=== PATIENT | female | born 2000 | race Two or more races ===

== ENCOUNTER 2024-11-03 12:06 | Inpatient (IN) | payer OTHER ==
[~2024-11-03] VITALS: Ht 157.5 cm; Wt 43.5 kg
[2024-11-03] MEDS ORDERED: ONDANSETRON HCL 2 MG/ML VIAL IV ONE (13:45)
[2024-11-03] MEDS ORDERED: 0.9 % SODIUM CHLORIDE 1,000 ML IV ONE (13:45)
[2024-11-03] MEDS ORDERED: FAMOtidine 10 MG/ML (4ML VIAL) IV ONE (13:45)
[2024-11-03] MEDS ORDERED: ONDANSETRON HCL 2 MG/ML VIAL ONE (14:08)
[2024-11-03] MEDS ORDERED: FAMOTIDINE/PF 20 MG/2 ML VIAL ONE (14:08)
[2024-11-03 15:18] LABS: ALT/SGPT 21 U/L (12-78); AST/SGOT 9 U/L (15-37); BILIRUBIN TOTAL 0.79 mg/dL (0.3-1.2); BUN CREA RATIO 13 (7.0-25.0); CREATININE SERUM 0.80 mg/dL (0.55-1.02); GFR 88.89; GLOBULINA 5.5 G/DL (2.4-3.5); GLUCOSE FASTING 104 mg/dL (65-100); OSMOLALITY SERUM 273 MOSM/KG (275-295)
[2024-11-03 15:20] LABS: BASO % 0.2 % (0.1-1.2); EOS # 0.00 (0.04-0.54); EOS % 0.0 % (0.7-7.0); HCG QUANTITATIVE < 1 mUI/mL (1-3); LYMPH # 0.89 (1.18-3.74); LYMPH % 3.7 % (19.3-53.1); MEAN PLATELET VOLUME 11.00 fl (9.4-12.4); MONO # 1.04 (0.24-0.82); MONO % 4.3 % (4.7-12.5); NEUT # 21.97 (1.56-6.13); NEUT % 91.2 % (34.0-71.1); RED CELL DISTRIBUTION WIDTH 15.0 % (11.6-14.4)
[2024-11-03] MEDS ORDERED: CEFTRIAXONE SODIUM 1,000 MG VIAL ONE ×2 (15:33→15:38)
[2024-11-03 15:39] LABS: COVID-19 AG NEGATIVE (NEGATIVE)
[2024-11-03] MEDS ORDERED: CEFTRIAXONE SODIUM 1,000 MG VIAL IV ONE (15:45)
[2024-11-03 17:54] LABS: URINE APPEARANCE Clear; URINE BILIRRUBIN Negative (NEGATIVE); URINE BLOOD Moderate; URINE COLOR Yellow; URINE GLUCOSE Negative (NEGATIVE); URINE LEUKOCYTE Small; URINE NITRATE Positive; URINE UROBILINOGEN 1.0 E.U./dl
[2024-11-03 17:58] LABS: URINE BACTERIA 1355.9 uL (0.0-1933); URINE EPITHELIAL CELLS 9.6 uL (0.0-38.8); URINE RBC 101.3 uL (0.0-20.8); URINE WBC 207.9 uL (0.0-23.2)
[2024-11-03 18:04] LABS: URINE CAST 0.29 uL (0.0-1.40); URINE KETONE 80 (NEGATIVE); URINE PROTEIN 100 (NEGATIVE)
[2024-11-03] MEDS ORDERED: CEFTRIAXONE SODIUM 2,000 MG in 0.9 % SODIUM CHLORIDE 100 ML IV SCH (21:52)
[2024-11-03] MEDS ORDERED: FAMOTIDINE/PF 20 MG in 0.9 % SODIUM CHLORIDE 8 ML IV PUSH SCH (21:52)
[2024-11-03] MEDS ORDERED: 0.9 % SODIUM CHLORIDE 1,000 ML IV SCH (22:00)
[2024-11-03] MEDS ORDERED: ONDANSETRON HCL 4 MG in 0.9 % SODIUM CHLORIDE 50 ML IV PRN (22:00)
[2024-11-03] MEDS ORDERED: ACETAMINOPHEN 500 MG GEL..CAP PO PRN (22:00)
[2024-11-03] MEDS ORDERED: KETOROLAC TROMETHAMINE 15 MG VIAL IU ONE (22:00)
[2024-11-04 03:34] VITALS: BP 110/70; O2SAT 99
[2024-11-04 04:13] LABS: INR 1.15
[2024-11-04 06:06] VITALS: BP 108/67; O2SAT 98
[2024-11-04 08:35] VITALS: BP 96/62
[2024-11-04 16:44] VITALS: BP 112/71
[2024-11-04] MEDS ORDERED: MORPHINE SULFATE 2 MG/ML CARTRIDGE IV PRN (17:00)
[2024-11-05 01:35] VITALS: BP 109/75; O2SAT 98
[2024-11-05 09:04] VITALS: BP 101/62; O2SAT 99
[2024-11-05 13:51] LABS: BASO % 0.4 % (0.1-1.2); EOS # 0.02 (0.04-0.54); EOS % 0.2 % (0.7-7.0); LYMPH # 1.36 (1.18-3.74); LYMPH % 14.4 % (19.3-53.1); MEAN PLATELET VOLUME 11.00 fl (9.4-12.4); MONO # 0.75 (0.24-0.82); MONO % 7.9 % (4.7-12.5); NEUT # 7.21 (1.56-6.13); NEUT % 76.3 % (34.0-71.1); RED CELL DISTRIBUTION WIDTH 15.2 % (11.6-14.4)
[2024-11-05 14:30] LABS: BUN CREA RATIO 9.0 (7.0-25.0); CREATININE SERUM 0.47 mg/dL (0.55-1.02); GFR 164.21; GLUCOSE FASTING 91.0 mg/dL (65-100); OSMOLALITY SERUM 276.0 MOSM/KG (275-295)
[2024-11-05 18:42] VITALS: BP 111/73
[2024-11-06 00:47] VITALS: BP 105/74; O2SAT 100
[2024-11-06 09:47] VITALS: BP 107/72
[2024-11-06] MEDS ORDERED: KETOROLAC TROMETHAMINE 30 MG VIAL IV STA (11:04)
[2024-11-06] MEDS ORDERED: KETOROLAC TROMETHAMINE 30 MG VIAL IV PRN (11:15)
[2024-11-06 18:08] VITALS: BP 104/72
[2024-11-07 09:06] VITALS: BP 100/67
[2024-11-07 15:35] LABS: BASO % 0.5 % (0.1-1.2); EOS # 0.17 (0.04-0.54); EOS % 3.0 % (0.7-7.0); LYMPH # 1.67 (1.18-3.74); LYMPH % 29.6 % (19.3-53.1); MEAN PLATELET VOLUME 9.90 fl (9.4-12.4); MONO # 0.48 (0.24-0.82); MONO % 8.5 % (4.7-12.5); NEUT # 3.26 (1.56-6.13); NEUT % 57.9 % (34.0-71.1); RED CELL DISTRIBUTION WIDTH 15.2 % (11.6-14.4)
[2024-11-07 17:30] VITALS: BP 91/57
[2024-11-08 01:23] VITALS: BP 104/70; O2SAT 97
[2024-11-08 08:19] LABS: ALT/SGPT 24.0 U/L (12-78); AST/SGOT 13.0 U/L (15-37); BILIRUBIN TOTAL 0.26 mg/dL (0.3-1.2); BUN CREA RATIO 14.0 (7.0-25.0); CREATININE SERUM 0.44 mg/dL (0.55-1.02); GFR 177.2; GLOBULINA 4.3 G/DL (2.4-3.5); GLUCOSE FASTING 80.0 mg/dL (65-100); OSMOLALITY SERUM 280.0 MOSM/KG (275-295)
[2024-11-08 08:50] VITALS: BP 104/70
[2024-11-08 08:57] LABS: BASO % 0.8 % (0.1-1.2); EOS # 0.20 (0.04-0.54); EOS % 3.9 % (0.7-7.0); LYMPH # 1.92 (1.18-3.74); LYMPH % 37.4 % (19.3-53.1); MEAN PLATELET VOLUME 10.80 fl (9.4-12.4); MONO # 0.44 (0.24-0.82); MONO % 8.6 % (4.7-12.5); NEUT # 2.51 (1.56-6.13); NEUT % 48.9 % (34.0-71.1); RED CELL DISTRIBUTION WIDTH 15.2 % (11.6-14.4)
[2024-11-08 10:24] LABS: BAND MAN 13.0 %; NEUTROPHILS MAN 37.0 %
[2024-11-08 10:25] LABS: BASOPHIL MAN 1.0 %; EOSINOPHIL MAN 5.0 %; LYMPHOCYTE MAN 23.0 %; MONOCYTE MAN 7.0 %
[2024-11-08 18:38] VITALS: BP 110/70
[2024-11-09 01:53] VITALS: BP 95/65; O2SAT 99
[2024-11-09 06:22] LABS: BASO % 0.9 % (0.1-1.2); EOS # 0.32 (0.04-0.54); EOS % 7.3 % (0.7-7.0); LYMPH # 1.94 (1.18-3.74); LYMPH % 44.3 % (19.3-53.1); MEAN PLATELET VOLUME 10.20 fl (9.4-12.4); MONO # 0.52 (0.24-0.82); MONO % 11.9 % (4.7-12.5); NEUT # 1.53 (1.56-6.13); NEUT % 34.9 % (34.0-71.1); RED CELL DISTRIBUTION WIDTH 15.1 % (11.6-14.4)
[2024-11-09 07:47] LABS: BAND MAN 8.0 %; EOSINOPHIL MAN 7.0 %; LYMPHOCYTE MAN 31.0 %; MONOCYTE MAN 24.0 %; NEUTROPHILS MAN 27.0 %
[2024-11-09 08:56] VITALS: BP 107/68; O2SAT 99
== END 2024-11-09 11:37 | disposition home or self-care (01) | DRG 690 ==
LOC: ER 12:06 → MEDI 22:13
PROVIDERS: General Practice; Internal Medicine; Internal Medicine Infectious Disease; ADMIT Student in an Organized Health Care Education/Training Program; ATTEND Student in an Organized Health Care Education/Training Program
PROC: BW21ZZZ Computerized Tomography (CT Scan) of Abdomen and Pelvis (ICD-10-PCS; principal; 2024-11-03)
DX: N12 Tubulo-interstitial nephritis, not specified as acute or chronic (principal); N39.0 Urinary tract infection, site not specified